=== PATIENT | male | born 1935 | race Caucasian/White ===

== ENCOUNTER → 2016-10-23 | Outpatient (CLI) | payer MEDICARE, BC ==
[~2016-10-23] MED LIST: CHILDREN'S ASPI81 M1 PO; COUMADIN PO; COUMADIN1 MG PO; DIGOXIN0.125 MG PO; FERROUS SU325 MG/TAB PO; INDOCIN50 MG PO; LASIX 40MG TABL40 MG PO; LEVOTHYROXIN0.075 MG PO; LISINOPRIL10 MG PO; LOPRESSOR100 MG PO; LOPRESSOR50 MG PO; MIRALAX PA17 GM/Dose PO; NITROSTAT0.4 MG/TAB SL; NORCO 325 MG-51 TAB PO; ULTRAM 50MG TAB50 MG PO; ZESTRIL2.5 MG PO
== END ==
LOC: LAB 10:23
DX: Z51.81 Encounter for therapeutic drug level monitoring (principal); Z79.01 Long term (current) use of anticoagulants; I48.2 Chronic atrial fibrillation

== ENCOUNTER → 2016-11-11 | Outpatient (CLI) | payer MEDICARE, BC | LOC: LAB 11:01 | DX: Z51.81 Encounter for therapeutic drug level monitoring (principal); Z79.01 Long term (current) use of anticoagulants; I48.91 Unspecified atrial fibrillation ==

== ENCOUNTER → 2016-11-18 | Outpatient (CLI) | payer MEDICARE, BC | LOC: LAB 11:03 | DX: I48.2 Chronic atrial fibrillation (principal); Z79.01 Long term (current) use of anticoagulants ==

== ENCOUNTER → 2016-11-25 | Outpatient (CLI) | payer MEDICARE, BC | LOC: LAB 11:06 | DX: Z79.01 Long term (current) use of anticoagulants (principal); I48.2 Chronic atrial fibrillation ==

== ENCOUNTER → 2016-12-02 | Outpatient (CLI) | payer MEDICARE, BC | LOC: LAB 10:33 | DX: Z79.01 Long term (current) use of anticoagulants (principal) ==

== ENCOUNTER → 2016-12-09 | Outpatient (CLI) | payer MEDICARE, BC | LOC: LAB 10:38 | DX: Z79.01 Long term (current) use of anticoagulants (principal) ==

== ENCOUNTER → 2016-12-16 | Outpatient (CLI) | payer MEDICARE, BC | LOC: LAB 10:33 | DX: Z51.81 Encounter for therapeutic drug level monitoring (principal); Z79.01 Long term (current) use of anticoagulants ==

== ENCOUNTER → 2016-12-30 | Outpatient (CLI) | payer MEDICARE, BC | LOC: LAB 10:35 | DX: Z51.81 Encounter for therapeutic drug level monitoring (principal); Z79.01 Long term (current) use of anticoagulants ==

== ENCOUNTER → 2017-01-22 | Outpatient (CLI) | payer MEDICARE, BC | LOC: LAB 10:02 | DX: Z51.81 Encounter for therapeutic drug level monitoring (principal); Z79.01 Long term (current) use of anticoagulants ==

== ENCOUNTER → 2017-02-19 | Outpatient (CLI) | payer MEDICARE, BC ==
[2015-04-24 06:48] VITALS: BP 132/82
== END ==
LOC: LAB 10:55
DX: Z51.81 Encounter for therapeutic drug level monitoring (principal); Z79.01 Long term (current) use of anticoagulants

== ENCOUNTER → 2017-03-19 | Outpatient (CLI) | payer MEDICARE, BC ==
[2015-04-24 06:48] VITALS: BP 132/82
== END ==
LOC: LAB 10:29
DX: Z51.81 Encounter for therapeutic drug level monitoring (principal); Z79.01 Long term (current) use of anticoagulants

== ENCOUNTER → 2017-04-16 | Outpatient (CLI) | payer MEDICARE, BC ==
[2015-04-24 06:48] VITALS: BP 132/82
== END ==
LOC: LAB 10:36
DX: Z51.81 Encounter for therapeutic drug level monitoring (principal); Z79.01 Long term (current) use of anticoagulants

== ENCOUNTER → 2017-05-15 | Outpatient (CLI) | payer MEDICARE, BC ==
[2015-04-24 06:48] VITALS: BP 132/82
== END ==
LOC: LAB 11:44
DX: Z79.01 Long term (current) use of anticoagulants (principal)

== ENCOUNTER → 2017-06-12 | Outpatient (CLI) | payer MEDICARE, BC ==
[2015-04-24 06:48] VITALS: BP 132/82
== END ==
LOC: LAB 14:00
DX: Z79.01 Long term (current) use of anticoagulants (principal)

== ENCOUNTER → 2017-06-19 | Outpatient (CLI) | payer MEDICARE, BC ==
[2015-04-24 06:48] VITALS: BP 132/82
== END ==
LOC: LAB 10:49
DX: Z79.01 Long term (current) use of anticoagulants (principal)

== ENCOUNTER → 2017-06-26 | Outpatient (CLI) | payer MEDICARE, BC ==
[2015-04-24 06:48] VITALS: BP 132/82
== END ==
LOC: LAB 13:30
DX: Z79.01 Long term (current) use of anticoagulants (principal)

== ENCOUNTER → 2017-07-03 | Outpatient (CLI) | payer MEDICARE, BC ==
[2015-04-24 06:48] VITALS: BP 132/82
== END ==
LOC: LAB 10:51
DX: Z79.01 Long term (current) use of anticoagulants (principal)

== ENCOUNTER → 2017-07-10 | Outpatient (CLI) | payer MEDICARE, BC ==
[2015-04-24 06:48] VITALS: BP 132/82
== END ==
LOC: LAB 11:17
DX: Z51.81 Encounter for therapeutic drug level monitoring (principal); Z79.01 Long term (current) use of anticoagulants

== ENCOUNTER → 2017-07-23 | Outpatient (CLI) | payer MEDICARE, BC ==
[2015-04-24 06:48] VITALS: BP 132/82
== END ==
LOC: LAB 10:45
DX: Z00.00 Encounter for general adult medical examination without abnormal findings (principal); Z12.5 Encounter for screening for malignant neoplasm of prostate; I25.10 Atherosclerotic heart disease of native coronary artery without angina pectoris; E11.8 Type 2 diabetes mellitus with unspecified complications; E78.2 Mixed hyperlipidemia; E03.4 Atrophy of thyroid (acquired); Z79.01 Long term (current) use of anticoagulants

== ENCOUNTER → 2017-08-13 | Outpatient (CLI) | payer MEDICARE, BC ==
[2015-04-24 06:48] VITALS: BP 132/82
[2017-08-13 11:12] LABS: PROTHROMBIN TIME 24.1 SECONDS (9.0-12.0)
== END ==
LOC: LAB 10:40
PROVIDERS: Internal Medicine Cardiovascular Disease
DX: Z79.01 Long term (current) use of anticoagulants (principal)

== ENCOUNTER 2017-09-09 04:37 | Emergency (ER) | payer MEDICARE, BC ==
[~2017-09-09] VITALS: Ht 185.4 cm; Wt 104.5 kg
[2017-09-09] MEDS ORDERED: TOPROL XL 50MG50 MG PO (05:12)
[2017-09-09] MEDS ORDERED: SYNTHROID0.075 MG PO (05:12)
[2017-09-09] MEDS ORDERED: LASIX80 M1 PO (05:13)
[2017-09-09] MEDS ORDERED: DIGOX0.125 MG PO (05:13)
[2017-09-09] MEDS ORDERED: ZESTRIL2.5 M1 PO (05:13)
[2017-09-09] MEDS ORDERED: CHILDREN'S ASPI81 M1 PO (05:14)
[2017-09-09] MEDS ORDERED: COUMADIN 1MG1 MG/TAB PO ×2 (05:14→05:15)
[2017-09-09] MEDS ORDERED: NITROSTAT0.3 MG SL (05:15)
[2017-09-09 05:55] LABS: HEMATOCRIT 40.4 % (42.0-52.0); HEMOGLOBIN 13.4 g/dL (13.5-18.0); MEAN CELL VOLUME 93 fl (78-100); MEAN CORPUSCULAR HEMOGLOBIN 31 pg (27-31); MEAN CORPUSCULAR HGB CONC 33 g/dL (33-37); MEAN PLATELET VOLUME 10.2 fl (7.4-10.4); PLATELET COUNT 120 K/mm3 (130-400); RED BLOOD COUNT 4.34 M/mm3 (4.20-5.60); RED CELL DISTRIBUTION WIDTH 14.2 % (11.5-14.5); WHITE BLOOD COUNT 9.2 K/mm3 (4.8-10.8)
[2017-09-09 06:00] LABS: ALBUMIN 3.9 g/dL (3.5-5.0); BUN/CREATININE RATIO 19.9 (6.0-26.0); CALCIUM 9.3 mg/dL (8.4-10.2); POTASSIUM 3.7 mmol/L (3.6-5.0); TOTAL PROTEIN 6.9 g/dL (6.3-8.2)
[2017-09-09 06:06] LABS: PROTHROMBIN TIME 22.9 SECONDS (9.0-12.0)
[2017-09-09 06:07] LABS: CKMB ISOENZYME 1.1 ng/mL (0.6-3.5)
[2017-09-09 06:14] LABS: PH-URINE 5.5 (5.0 - 8.0); URINE APPEARANCE CLEAR; URINE BILIRUBIN NEGATIVE (NEGATIVE); URINE BLOOD TRACE (NEGATIVE); URINE COLOR AMBER; URINE GLUCOSE NEGATIVE (NEGATIVE); URINE KETONE 1+ (NEGATIVE); URINE LEUKOCYTE ESTERASE NEGATIVE (NEGATIVE); URINE MUCUS PRESENT (NOT PRESENT); URINE NITRATE NEGATIVE (NEGATIVE); URINE PROTEIN(semi-quant) TRACE mg/dL (NEGATIVE); URINE UROBILINOGEN NORMAL (NORMAL)
[2017-09-09 06:15] LABS: BAND 4 % (0-10); LYMPHOCYTE 2 % (20-51); MONOCYTE 12 % (3-10); NEUTROPHILS 82 % (42-75)
[2017-09-09 06:16] LABS: TROPONIN-I < 0.03 ng/mL (0.00-0.06)
[2017-09-09] MEDS ORDERED: LOPRESSOR 550 MG/TAB PO (08:22)
[2017-09-09] MEDS ORDERED: ZOFRAN ODT8 M1 PO (10:16)
[2017-09-09] MEDS ORDERED: CLEOCIN HCL300 MG PO (10:16)
[2017-09-09] MEDS ORDERED: DOCUSATE SOD100 MG PO (10:16)
[2017-09-09] MEDS ORDERED: NORCO 325 MG-51 TA1 PO (10:16)
[2017-09-09 10:38] VITALS: BP 132/74
== END 2017-09-09 10:39 | disposition home or self-care (01) ==
LOC: ED 04:37
PROVIDERS: Nurse Practitioner Primary Care
DX: K81.0 Acute cholecystitis (principal); R07.9 Chest pain, unspecified; I48.91 Unspecified atrial fibrillation; Z79.01 Long term (current) use of anticoagulants; I25.10 Atherosclerotic heart disease of native coronary artery without angina pectoris; I25.2 Old myocardial infarction; E78.5 Hyperlipidemia, unspecified; I10 Essential (primary) hypertension; Z95.5 Presence of coronary angioplasty implant and graft
CPT/HCPCS: J2270; J2405; J7030; Q9967

== ENCOUNTER 2017-10-06 13:09 | Inpatient (IN) | payer MEDICARE, BC ==
[~2017-10-06] VITALS: Ht 185.4 cm; Wt 96.4 kg
[~2017-10-06 13:09] MED LIST changes: +CLEOCIN HCL300 MG PO; +COUMADIN 1MG1 MG/TAB PO; +DIGOX0.125 MG PO; +DOCUSATE SOD100 MG PO; +LASIX80 M1 PO; +LOPRESSOR 550 MG/TAB PO; +NITROSTAT0.3 MG SL; +NORCO 325 MG-51 TA1 PO; +SYNTHROID0.075 MG PO; +TOPROL XL 50MG50 MG PO; +ZESTRIL2.5 M1 PO; +ZOFRAN ODT8 M1 PO
[2017-10-07] MEDS ORDERED: TIAZAC120 MG PO (16:49)
[2017-10-07] MEDS ORDERED: FUROSEMIDE40 MG (16:50)
[2017-10-07] MEDS ORDERED: LOPRESSOR 550 MG/TAB PO (16:51)
[2017-10-07] MEDS ORDERED: DOCUSATE SODIUM1 TA2 PO (16:52)
[2017-10-07] MEDS ORDERED: COUMADIN 1MG1 MG/TAB PO (16:54)
[2017-10-07] MEDS ORDERED: NITROSTAT0.3 MG SL (16:54)
[2017-10-07 16:56] VITALS: BP 102/66
[2017-10-07] MEDS ORDERED: NORCO 325 MG-7.1 TA1 PO (16:56)
[2017-10-07 18:20] VITALS: BP 106/60
[2017-10-07 18:36] VITALS: BP 106/60
[2017-10-07 20:51] LABS: ALBUMIN 2.9 g/dL (3.5-5.0); BUN/CREATININE RATIO 28.3 (6.0-26.0); CALCIUM 8.8 mg/dL (8.4-10.2); POTASSIUM 3.9 mmol/L (3.6-5.0); TOTAL BILIRUBIN 0.9 mg/dL (0.2-1.3); TOTAL PROTEIN 5.9 g/dL (6.3-8.2)
[2017-10-08 05:59] LABS: HEMATOCRIT 32.8 % (42.0-52.0); HEMOGLOBIN 10.6 g/dL (13.5-18.0); MEAN CELL VOLUME 92 fl (78-100); MEAN CORPUSCULAR HEMOGLOBIN 30 pg (27-31); MEAN CORPUSCULAR HGB CONC 32 g/dL (33-37); MEAN PLATELET VOLUME 9.8 fl (7.4-10.4); PLATELET COUNT 226 K/mm3 (130-400); RED BLOOD COUNT 3.56 M/mm3 (4.20-5.60); RED CELL DISTRIBUTION WIDTH 14.2 % (11.5-14.5); WHITE BLOOD COUNT 6.9 K/mm3 (4.8-10.8)
[2017-10-08 06:22] VITALS: BP 134/74
[2017-10-08 06:30] LABS: LYMPHOCYTE 19 % (20-51); MONOCYTE 17 % (3-10); NEUTROPHILS 63 % (42-75)
[2017-10-08 19:19] VITALS: BP 104/55
[2017-10-09 07:09] VITALS: BP 122/77
[2017-10-09 18:50] VITALS: BP 132/74
[2017-10-10 06:11] VITALS: BP 143/77
[2017-10-10 18:56] VITALS: BP 121/68
[2017-10-11 07:08] VITALS: BP 130/68
[2017-10-11 16:41] LABS: EOS # 0.4 (0.04-0.40); HEMATOCRIT 32.8 % (42.0-52.0); HEMOGLOBIN 10.4 g/dL (13.5-18.0); LYMPH# 0.9 (1.50-4.00); MEAN CELL VOLUME 93 fl (78-100); MEAN CORPUSCULAR HEMOGLOBIN 29 pg (27-31); MEAN CORPUSCULAR HGB CONC 32 g/dL (33-37); MEAN PLATELET VOLUME 9.3 fl (7.4-10.4); MONO # 0.6 (0.20-0.80); NEU # 4.2 (1.40-6.50); PLATELET COUNT 271 K/mm3 (130-400); RED BLOOD COUNT 3.54 M/mm3 (4.20-5.60); RED CELL DISTRIBUTION WIDTH 14.5 % (11.5-14.5); WHITE BLOOD COUNT 6.3 K/mm3 (4.8-10.8)
[2017-10-11 16:42] LABS: EOS % 6.2 % (0.0-4.0)
[2017-10-11 16:50] LABS: PROTHROMBIN TIME 20.8 SECONDS (9.0-12.0)
[2017-10-11 16:51] LABS: BUN/CREATININE RATIO 24.9 (6.0-26.0); CALCIUM 8.9 mg/dL (8.4-10.2); POTASSIUM 3.9 mmol/L (3.6-5.0)
[2017-10-11 18:27] VITALS: BP 116/71
[2017-10-12 06:44] VITALS: BP 99/65
[2017-10-12 18:09] VITALS: BP 130/49
[2017-10-13 06:30] VITALS: BP 117/66
[2017-10-13 08:40] LABS: PROTHROMBIN TIME 17.8 SECONDS (9.0-12.0)
[2017-10-13 18:26] VITALS: BP 109/58
[2017-10-14 06:37] VITALS: BP 117/65
[2017-10-14 07:00] LABS: EOS # 0.4 (0.04-0.40); HEMATOCRIT 32.8 % (42.0-52.0); HEMOGLOBIN 10.3 g/dL (13.5-18.0); LYMPH# 1.2 (1.50-4.00); MEAN CELL VOLUME 93 fl (78-100); MEAN CORPUSCULAR HEMOGLOBIN 29 pg (27-31); MEAN CORPUSCULAR HGB CONC 31 g/dL (33-37); MEAN PLATELET VOLUME 9.1 fl (7.4-10.4); MONO # 0.6 (0.20-0.80); NEU # 2.8 (1.40-6.50); PLATELET COUNT 248 K/mm3 (130-400); RED BLOOD COUNT 3.52 M/mm3 (4.20-5.60); RED CELL DISTRIBUTION WIDTH 14.6 % (11.5-14.5)
[2017-10-14 07:15] LABS: PROTHROMBIN TIME 18.1 SECONDS (9.0-12.0)
[2017-10-14 18:52] VITALS: BP 110/51
[2017-10-15 06:25] VITALS: BP 111/64
[2017-10-15 18:23] VITALS: BP 119/54
[2017-10-16 06:36] LABS: PROTHROMBIN TIME 22.3 SECONDS (9.0-12.0)
[2017-10-16 06:41] VITALS: BP 133/60
[2017-10-16] MEDS ORDERED: CARDIZEM CD240 M1 PO (08:17)
[2017-10-16] MEDS ORDERED: NORCO 325 MG-7.1 TAB PO (08:17)
[2017-10-16 18:00] VITALS: BP 110/54
[2017-10-17 06:34] VITALS: BP 121/59
== END 2017-10-17 11:20 | disposition home health service (06) | DRG 948 ==
LOC: MED/SURG 13:09
PROVIDERS: Family Medicine; Physician Assistant; ADMIT Nurse Practitioner Family
DX: R53.81 Other malaise (principal); I25.2 Old myocardial infarction; E03.9 Hypothyroidism, unspecified; I48.2 Chronic atrial fibrillation; Z86.718 Personal history of other venous thrombosis and embolism; Z95.5 Presence of coronary angioplasty implant and graft; Z96.652 Presence of left artificial knee joint; Z79.01 Long term (current) use of anticoagulants; Z87.891 Personal history of nicotine dependence; M65.4 Radial styloid tenosynovitis [de Quervain]; I11.0 Hypertensive heart disease with heart failure; I50.9 Heart failure, unspecified
CPT/HCPCS: J1650

== ENCOUNTER → 2017-10-27 | Outpatient (CLI) | payer MEDICARE, BC ==
[2017-10-17 06:34] VITALS: BP 121/59
[~2017-10-27] MED LIST changes: +CARDIZEM CD240 M1 PO; +DOCUSATE SODIUM1 TA2 PO; +FUROSEMIDE40 MG; +NORCO 325 MG-7.1 TA1 PO; +NORCO 325 MG-7.1 TAB PO; +TIAZAC120 MG PO
[2017-10-27 12:10] LABS: HEMATOCRIT 35.1 % (42.0-52.0); HEMOGLOBIN 10.9 g/dL (13.5-18.0); MEAN CELL VOLUME 95 fl (78-100); MEAN CORPUSCULAR HEMOGLOBIN 30 pg (27-31); MEAN CORPUSCULAR HGB CONC 31 g/dL (33-37); MEAN PLATELET VOLUME 9.4 fl (7.4-10.4); PLATELET COUNT 143 K/mm3 (130-400); WHITE BLOOD COUNT 3.9 K/mm3 (4.8-10.8)
[2017-10-27 12:17] LABS: PROTHROMBIN TIME 32.9 SECONDS (9.0-12.0)
[2017-10-27 12:25] LABS: LYMPHOCYTE 15 % (20-51); MONOCYTE 14 % (3-10); NEUTROPHILS 58 % (42-75); OVALOCYTES 1+
[2017-10-27 13:28] LABS: ERYTHROCYTE SEDIMENTATION RATE 100 mm/hr (0-20)
== END ==
LOC: RAD 11:46
PROVIDERS: Nurse Practitioner Family
DX: I48.2 Chronic atrial fibrillation (principal); R04.0 Epistaxis; M81.0 Age-related osteoporosis without current pathological fracture; M19.032 Primary osteoarthritis, left wrist; Z87.39 Personal history of other diseases of the musculoskeletal system and connective tissue

== ENCOUNTER → 2017-12-24 | Outpatient (CLI) | payer MEDICARE, BC ==
[2017-12-24 15:09] LABS: PROTHROMBIN TIME 19.6 SECONDS (9.0-12.0)
== END ==
LOC: LAB 13:48
PROVIDERS: Internal Medicine Cardiovascular Disease
DX: Z79.01 Long term (current) use of anticoagulants (principal)

== ENCOUNTER → 2018-01-01 | Outpatient (CLI) | payer MEDICARE, BC ==
[2018-01-01 11:45] LABS: PROTHROMBIN TIME 24.7 SECONDS (9.0-12.0)
== END ==
LOC: LAB 10:56
PROVIDERS: Internal Medicine Cardiovascular Disease
DX: Z79.01 Long term (current) use of anticoagulants (principal)

== ENCOUNTER → 2018-01-08 | Outpatient (CLI) | payer MEDICARE, BC ==
[2018-01-08 15:58] LABS: PROTHROMBIN TIME 29.3 SECONDS (9.0-12.0)
== END ==
LOC: LAB 15:00
PROVIDERS: Internal Medicine Cardiovascular Disease
DX: Z79.01 Long term (current) use of anticoagulants (principal)

== ENCOUNTER → 2018-01-22 | Outpatient (CLI) | payer MEDICARE, BC ==
[2018-01-22 13:49] LABS: PROTHROMBIN TIME 35.4 SECONDS (9.0-12.0)
== END ==
LOC: LAB 13:08
PROVIDERS: Internal Medicine Cardiovascular Disease
DX: Z79.01 Long term (current) use of anticoagulants (principal)

== ENCOUNTER → 2018-01-28 | Outpatient (CLI) | payer MEDICARE, BC | LOC: LAB 13:29 | PROVIDERS: Internal Medicine Cardiovascular Disease | DX: Z79.01 Long term (current) use of anticoagulants (principal) ==

== ENCOUNTER → 2018-02-05 | Outpatient (CLI) | payer MEDICARE, BC ==
[2018-02-05 16:06] LABS: PROTHROMBIN TIME 25.7 SECONDS (9.0-12.0)
== END ==
LOC: LAB 13:53
PROVIDERS: Internal Medicine Cardiovascular Disease
DX: Z79.01 Long term (current) use of anticoagulants (principal)

== ENCOUNTER → 2018-02-19 | Outpatient (CLI) | payer MEDICARE, BC ==
[2018-02-19 11:37] LABS: PROTHROMBIN TIME 26.2 SECONDS (9.0-12.0)
== END ==
LOC: LAB 10:49
PROVIDERS: Internal Medicine Cardiovascular Disease
DX: Z79.01 Long term (current) use of anticoagulants (principal)

== ENCOUNTER → 2018-03-13 | Outpatient (CLI) | payer MEDICARE, BC ==
[2018-03-13 10:47] LABS: PROTHROMBIN TIME 32.3 SECONDS (9.0-12.0)
== END ==
LOC: LAB 10:21
PROVIDERS: Internal Medicine Cardiovascular Disease
DX: Z79.01 Long term (current) use of anticoagulants (principal)

== ENCOUNTER → 2018-03-19 | Outpatient (CLI) | payer MEDICARE, BC ==
[2018-03-19 11:48] LABS: PROTHROMBIN TIME 32.8 SECONDS (9.0-12.0)
== END ==
LOC: LAB 11:19
PROVIDERS: Internal Medicine Cardiovascular Disease
DX: Z79.01 Long term (current) use of anticoagulants (principal)

== ENCOUNTER → 2018-03-27 | Outpatient (CLI) | payer MEDICARE, BC ==
[2018-03-27 11:02] LABS: PROTHROMBIN TIME 30.2 SECONDS (9.0-12.0)
== END ==
LOC: LAB 10:07
PROVIDERS: Internal Medicine Cardiovascular Disease
DX: Z51.81 Encounter for therapeutic drug level monitoring (principal); Z79.01 Long term (current) use of anticoagulants

== ENCOUNTER → 2018-04-02 | Outpatient (CLI) | payer MEDICARE, BC ==
[2018-04-02 14:50] LABS: PROTHROMBIN TIME 26.9 SECONDS (9.0-12.0)
== END ==
LOC: LAB 14:21
PROVIDERS: Internal Medicine Cardiovascular Disease
DX: Z51.81 Encounter for therapeutic drug level monitoring (principal); Z79.01 Long term (current) use of anticoagulants

== ENCOUNTER → 2018-04-16 | Outpatient (CLI) | payer MEDICARE, BC ==
[2018-04-16 10:48] LABS: PROTHROMBIN TIME 23.2 SECONDS (9.0-12.0)
== END ==
LOC: LAB 10:09
PROVIDERS: Internal Medicine Cardiovascular Disease
DX: Z51.81 Encounter for therapeutic drug level monitoring (principal); Z79.01 Long term (current) use of anticoagulants

== ENCOUNTER → 2018-05-06 | Outpatient (CLI) | payer MEDICARE, BC ==
[2018-05-06 12:01] LABS: PROTHROMBIN TIME 23.3 SECONDS (9.0-12.0)
== END ==
LOC: LAB 10:50
PROVIDERS: Internal Medicine Cardiovascular Disease
DX: Z51.81 Encounter for therapeutic drug level monitoring (principal); Z79.01 Long term (current) use of anticoagulants

== ENCOUNTER → 2018-06-02 | Outpatient (CLI) | payer MEDICARE, BC ==
[2018-06-02 15:59] LABS: BUN/CREATININE RATIO 15.4 (6.0-26.0); CALCIUM 9.1 mg/dL (8.4-10.2); TOTAL BILIRUBIN 0.8 mg/dL (0.2-1.3)
[2018-06-02 16:13] LABS: HEMATOCRIT 43.7 % (42.0-52.0); HEMOGLOBIN 14.4 g/dL (13.5-18.0); MEAN CELL VOLUME 97 fl (78-100); MEAN CORPUSCULAR HEMOGLOBIN 32 pg (27-31); MEAN CORPUSCULAR HGB CONC 33 g/dL (33-37); MEAN PLATELET VOLUME 9.8 fl (7.4-10.4); PLATELET COUNT 114 K/mm3 (130-400); RED CELL DISTRIBUTION WIDTH 13.8 % (11.5-14.5); WHITE BLOOD COUNT 3.9 K/mm3 (4.8-10.8)
[2018-06-02 16:27] LABS: URINE APPEARANCE CLEAR; URINE COLOR YELLOW
[2018-06-02 16:28] LABS: PH-URINE 5.5 (5.0 - 8.0); URINE BILIRUBIN NEGATIVE (NEGATIVE); URINE BLOOD NEGATIVE (NEGATIVE); URINE GLUCOSE NEGATIVE (NEGATIVE); URINE KETONE NEGATIVE (NEGATIVE); URINE LEUKOCYTE ESTERASE NEGATIVE (NEGATIVE); URINE NITRATE NEGATIVE (NEGATIVE); URINE PROTEIN(semi-quant) NEGATIVE (NEGATIVE); URINE UROBILINOGEN NORMAL (NORMAL); URINE WBC 0-1 /hpf (0-3)
[2018-06-02 16:47] LABS: LYMPHOCYTE 23 % (20-51); MONOCYTE 13 % (3-10); NEUTROPHILS 62 % (42-75)
[2018-06-02 17:50] LABS: PROTHROMBIN TIME 38.3 SECONDS (9.0-12.0)
== END ==
LOC: LAB 13:49
PROVIDERS: Internal Medicine Cardiovascular Disease
DX: I10 Essential (primary) hypertension (principal); E11.9 Type 2 diabetes mellitus without complications; E78.5 Hyperlipidemia, unspecified; E03.9 Hypothyroidism, unspecified; M10.9 Gout, unspecified; Z79.01 Long term (current) use of anticoagulants

== ENCOUNTER → 2018-06-10 | Outpatient (CLI) | payer MEDICARE, BC ==
[2018-06-10 16:26] LABS: PROTHROMBIN TIME 34.5 SECONDS (9.0-12.0)
== END ==
LOC: LAB 15:33
PROVIDERS: Internal Medicine Cardiovascular Disease
DX: Z51.81 Encounter for therapeutic drug level monitoring (principal); Z79.01 Long term (current) use of anticoagulants

== ENCOUNTER → 2018-07-03 | Outpatient (CLI) | payer MEDICARE, BC ==
[2018-07-03 11:35] LABS: PROTHROMBIN TIME 17.1 SECONDS (9.0-12.0)
== END ==
LOC: LAB 10:44
PROVIDERS: Internal Medicine Cardiovascular Disease
DX: Z51.81 Encounter for therapeutic drug level monitoring (principal); Z79.01 Long term (current) use of anticoagulants

== ENCOUNTER → 2018-07-14 | Outpatient (CLI) | payer MEDICARE, BC | LOC: LAB 10:08 | PROVIDERS: Internal Medicine Cardiovascular Disease | DX: Z79.01 Long term (current) use of anticoagulants (principal) ==

== ENCOUNTER → 2018-08-04 | Outpatient (CLI) | payer MEDICARE, BC ==
[2018-08-04 11:23] LABS: PROTHROMBIN TIME 24.5 SECONDS (9.0-12.0)
== END ==
LOC: LAB 10:52
PROVIDERS: Internal Medicine Cardiovascular Disease
DX: Z79.01 Long term (current) use of anticoagulants (principal)

== ENCOUNTER → 2018-09-02 | Outpatient (CLI) | payer MEDICARE, BC ==
[2018-09-02 11:50] LABS: PROTHROMBIN TIME 26.3 SECONDS (9.0-12.0)
== END ==
LOC: LAB 10:44
PROVIDERS: Internal Medicine Cardiovascular Disease
DX: Z51.81 Encounter for therapeutic drug level monitoring (principal); Z79.01 Long term (current) use of anticoagulants

== ENCOUNTER → 2018-09-29 | Outpatient (CLI) | payer MEDICARE, BC ==
[2018-09-29 14:57] LABS: PROTHROMBIN TIME 24.6 SECONDS (9.0-12.0)
== END ==
LOC: LAB 13:55
PROVIDERS: Internal Medicine Cardiovascular Disease
DX: Z51.81 Encounter for therapeutic drug level monitoring (principal); Z79.01 Long term (current) use of anticoagulants

== ENCOUNTER → 2018-10-28 | Outpatient (CLI) | payer MEDICARE, BC ==
[2018-10-28 11:01] LABS: PROTHROMBIN TIME 19.6 SECONDS (9.0-12.0)
== END ==
LOC: LAB 10:28
PROVIDERS: Internal Medicine Cardiovascular Disease
DX: Z51.81 Encounter for therapeutic drug level monitoring (principal); Z79.01 Long term (current) use of anticoagulants

== ENCOUNTER → 2018-11-04 | Outpatient (CLI) | payer MEDICARE, BC ==
[2018-11-04 13:05] LABS: PROTHROMBIN TIME 23.9 SECONDS (9.0-12.0)
== END ==
LOC: LAB 11:08
PROVIDERS: Internal Medicine Cardiovascular Disease
DX: Z51.81 Encounter for therapeutic drug level monitoring (principal); Z79.01 Long term (current) use of anticoagulants; I48.2 Chronic atrial fibrillation

== ENCOUNTER → 2018-11-18 | Outpatient (CLI) | payer MEDICARE, BC ==
[2018-11-18 11:45] LABS: PROTHROMBIN TIME 25.5 SECONDS (9.0-12.0)
== END ==
LOC: RAD 10:46 → LAB 10:46
PROVIDERS: Internal Medicine Cardiovascular Disease
DX: I50.9 Heart failure, unspecified (principal); R05 Cough; I48.2 Chronic atrial fibrillation; Z79.01 Long term (current) use of anticoagulants; Z87.09 Personal history of other diseases of the respiratory system

== ENCOUNTER → 2018-12-17 | Outpatient (CLI) | payer MEDICARE, BC ==
[2018-12-18 11:43] LABS: PROTHROMBIN TIME 28.4 SECONDS (9.0-12.0)
== END ==
LOC: LAB 10:13
PROVIDERS: Internal Medicine Cardiovascular Disease
DX: I48.2 Chronic atrial fibrillation (principal); Z79.01 Long term (current) use of anticoagulants

== ENCOUNTER → 2019-01-11 | Outpatient (CLI) | payer MEDICARE, BC ==
[2019-01-11 13:20] LABS: PROTHROMBIN TIME 25.2 SECONDS (9.0-12.0)
== END ==
LOC: LAB 11:30
PROVIDERS: Internal Medicine Cardiovascular Disease
DX: I48.2 Chronic atrial fibrillation (principal); Z79.01 Long term (current) use of anticoagulants

== ENCOUNTER → 2019-02-08 | Outpatient (CLI) | payer MEDICARE, BC ==
[2019-02-08 11:18] LABS: PROTHROMBIN TIME 36.8 SECONDS (9.0-12.0)
== END ==
LOC: LAB 10:37
PROVIDERS: Internal Medicine Cardiovascular Disease
DX: I48.2 Chronic atrial fibrillation (principal); Z79.01 Long term (current) use of anticoagulants

== ENCOUNTER → 2019-03-17 | Outpatient (CLI) | payer MEDICARE, BC ==
[2019-03-17 13:57] LABS: PROTHROMBIN TIME 24.3 SECONDS (9.0-12.0)
== END ==
LOC: LAB 13:14
PROVIDERS: Internal Medicine Cardiovascular Disease
DX: I48.2 Chronic atrial fibrillation (principal); Z79.01 Long term (current) use of anticoagulants

== ENCOUNTER → 2019-05-12 | Outpatient (CLI) | payer MEDICARE, BC ==
[2019-05-12 14:22] LABS: PROTHROMBIN TIME 23.3 SECONDS (9.0-12.0)
== END ==
LOC: LAB 13:53
PROVIDERS: Internal Medicine Cardiovascular Disease
DX: I48.2 Chronic atrial fibrillation (principal); Z79.01 Long term (current) use of anticoagulants

== ENCOUNTER → 2019-06-09 | Outpatient (CLI) | payer MEDICARE, BC ==
[2019-06-09 11:08] LABS: PROTHROMBIN TIME 30.6 SECONDS (9.0-12.0)
== END ==
LOC: LAB 10:02
PROVIDERS: Internal Medicine Cardiovascular Disease
DX: I48.2 Chronic atrial fibrillation (principal); Z79.01 Long term (current) use of anticoagulants

== ENCOUNTER → 2019-07-07 | Outpatient (CLI) | payer MEDICARE, BC ==
[2019-07-07 10:47] LABS: PROTHROMBIN TIME 30.2 SECONDS (9.0-12.0)
== END ==
LOC: LAB 10:12
PROVIDERS: Internal Medicine Cardiovascular Disease
DX: I48.2 Chronic atrial fibrillation (principal); Z79.01 Long term (current) use of anticoagulants

== ENCOUNTER → 2019-08-05 | Outpatient (CLI) | payer MEDICARE, BC ==
[2019-08-05 10:41] LABS: PROTHROMBIN TIME 27.8 SECONDS (9.0-12.0)
== END ==
LOC: LAB 10:07
PROVIDERS: Internal Medicine Cardiovascular Disease
DX: I48.20 Chronic atrial fibrillation, unspecified (principal); Z79.01 Long term (current) use of anticoagulants

== ENCOUNTER → 2019-09-08 | Outpatient (CLI) | payer MEDICARE, BC | LOC: LAB 10:48 | PROVIDERS: Internal Medicine Cardiovascular Disease | DX: I48.20 Chronic atrial fibrillation, unspecified (principal); Z79.01 Long term (current) use of anticoagulants ==

== ENCOUNTER → 2019-10-06 | Outpatient (CLI) | payer MEDICARE, BC ==
[2019-10-06 12:18] LABS: PROTHROMBIN TIME 25.3 SECONDS (9.0-12.0)
== END ==
LOC: LAB 11:05
PROVIDERS: Internal Medicine Cardiovascular Disease
DX: Z51.81 Encounter for therapeutic drug level monitoring (principal); Z79.01 Long term (current) use of anticoagulants

== ENCOUNTER → 2019-11-03 | Outpatient (CLI) | payer MEDICARE, BC ==
[2019-11-03 14:37] LABS: PROTHROMBIN TIME 31.9 SECONDS (9.0-12.0)
== END ==
LOC: LAB 14:01
PROVIDERS: Internal Medicine Cardiovascular Disease
DX: I48.20 Chronic atrial fibrillation, unspecified (principal); Z79.01 Long term (current) use of anticoagulants

== ENCOUNTER → 2019-11-09 | Outpatient (CLI) | payer MEDICARE, BC ==
[2019-11-09 11:35] LABS: PROTHROMBIN TIME 27.8 SECONDS (9.0-12.0)
== END ==
LOC: LAB 10:48
PROVIDERS: Internal Medicine Cardiovascular Disease
DX: Z51.81 Encounter for therapeutic drug level monitoring (principal); Z79.01 Long term (current) use of anticoagulants

== ENCOUNTER → 2019-11-16 | Outpatient (CLI) | payer MEDICARE, BC ==
[2019-11-16 11:22] LABS: PROTHROMBIN TIME 24.9 SECONDS (9.0-12.0)
== END ==
LOC: LAB 10:49
PROVIDERS: Internal Medicine Cardiovascular Disease
DX: Z51.81 Encounter for therapeutic drug level monitoring (principal); Z79.01 Long term (current) use of anticoagulants

== ENCOUNTER → 2019-11-30 | Outpatient (CLI) | payer MEDICARE, BC ==
[2019-11-30 11:04] LABS: PROTHROMBIN TIME 21.4 SECONDS (9.0-12.0)
== END ==
LOC: LAB 10:37
PROVIDERS: Internal Medicine Cardiovascular Disease
DX: Z51.81 Encounter for therapeutic drug level monitoring (principal); Z79.01 Long term (current) use of anticoagulants

== ENCOUNTER → 2019-12-31 | Outpatient (CLI) | payer MEDICARE, BC ==
[2019-12-31 10:10] LABS: PROTHROMBIN TIME 24.6 SECONDS (9.0-12.0)
== END ==
LOC: LAB 09:38
PROVIDERS: Internal Medicine Cardiovascular Disease
DX: Z51.81 Encounter for therapeutic drug level monitoring (principal); Z79.01 Long term (current) use of anticoagulants

== ENCOUNTER → 2020-03-07 | Outpatient (CLI) | payer MEDICARE, BC ==
[2020-03-07 10:55] LABS: PROTHROMBIN TIME 21.7 SECONDS (9.0-12.0)
== END ==
LOC: LAB 09:27
PROVIDERS: Internal Medicine Cardiovascular Disease
DX: Z51.81 Encounter for therapeutic drug level monitoring (principal); Z79.01 Long term (current) use of anticoagulants

== ENCOUNTER → 2020-04-05 | Outpatient (CLI) | payer MEDICARE, BC ==
[2020-04-05 12:32] LABS: PROTHROMBIN TIME 35.3 SECONDS (9.0-12.0)
== END ==
LOC: LAB 11:09
PROVIDERS: Internal Medicine Cardiovascular Disease
DX: Z51.81 Encounter for therapeutic drug level monitoring (principal); Z79.01 Long term (current) use of anticoagulants

== ENCOUNTER → 2020-04-11 | Outpatient (CLI) | payer MEDICARE, BC | LOC: LAB 10:21 | PROVIDERS: Internal Medicine Cardiovascular Disease | DX: Z51.81 Encounter for therapeutic drug level monitoring (principal); Z79.01 Long term (current) use of anticoagulants ==

== ENCOUNTER → 2020-04-18 | Outpatient (CLI) | payer MEDICARE, BC ==
[2020-04-18 11:31] LABS: PROTHROMBIN TIME 21.9 SECONDS (9.0-12.0)
== END ==
LOC: LAB 10:29
PROVIDERS: Internal Medicine Cardiovascular Disease
DX: Z51.81 Encounter for therapeutic drug level monitoring (principal); Z79.01 Long term (current) use of anticoagulants

== ENCOUNTER → 2020-05-16 | Outpatient (CLI) | payer MEDICARE, BC ==
[2020-05-16 10:21] LABS: HEMATOCRIT 42.3 % (42.0-52.0); HEMOGLOBIN 14.1 g/dL (13.5-18.0); MEAN CELL VOLUME 96 fl (78-100); MEAN CORPUSCULAR HEMOGLOBIN 32 pg (27-31); MEAN CORPUSCULAR HGB CONC 33 g/dL (33-37); MEAN PLATELET VOLUME 10.2 fl (7.4-10.4); PLATELET COUNT 98 K/mm3 (130-400); RED CELL DISTRIBUTION WIDTH 14.1 % (11.5-14.5); WHITE BLOOD COUNT 4.8 K/mm3 (4.8-10.8)
[2020-05-16 10:24] LABS: POTASSIUM 4.2 mmol/L (3.5-5.1)
[2020-05-16 10:25] LABS: CALCIUM 9.2 mg/dL (8.3-10.5)
[2020-05-16 10:28] LABS: TOTAL BILIRUBIN 0.8 mg/dL (0.2-1.2)
[2020-05-16 10:46] LABS: PROTHROMBIN TIME 26.4 SECONDS (9.0-12.0)
[2020-05-16 10:59] LABS: LYMPHOCYTE 21 % (20-51); MONOCYTE 11 % (3-10); NEUTROPHILS 65 % (42-75)
== END ==
LOC: LAB 09:55
PROVIDERS: Internal Medicine Cardiovascular Disease
DX: E11.9 Type 2 diabetes mellitus without complications (principal); E78.5 Hyperlipidemia, unspecified; I10 Essential (primary) hypertension; Z79.01 Long term (current) use of anticoagulants

== ENCOUNTER → 2020-06-13 | Outpatient (CLI) | payer MEDICARE, BC ==
[2020-06-13 10:53] LABS: PROTHROMBIN TIME 23.6 SECONDS (9.0-12.0)
== END ==
LOC: LAB 10:22
PROVIDERS: Internal Medicine Cardiovascular Disease
DX: Z51.81 Encounter for therapeutic drug level monitoring (principal); Z79.01 Long term (current) use of anticoagulants

== ENCOUNTER → 2020-08-03 | Outpatient (CLI) | payer MEDICARE, BC ==
[2020-08-03 11:47] LABS: PROTHROMBIN TIME 40.8 SECONDS (9.0-12.0)
== END ==
LOC: LAB 10:17
PROVIDERS: Internal Medicine Cardiovascular Disease
DX: Z51.81 Encounter for therapeutic drug level monitoring (principal); Z79.01 Long term (current) use of anticoagulants

== ENCOUNTER → 2020-08-17 | Outpatient (CLI) | payer MEDICARE, BC ==
[2020-08-17 10:45] LABS: PROTHROMBIN TIME 37.5 SECONDS (9.0-12.0)
== END ==
LOC: LAB 10:18
PROVIDERS: Internal Medicine Cardiovascular Disease
DX: Z51.81 Encounter for therapeutic drug level monitoring (principal); Z79.01 Long term (current) use of anticoagulants

== ENCOUNTER → 2020-08-31 | Outpatient (CLI) | payer MEDICARE, BC | LOC: LAB 10:07 | PROVIDERS: Internal Medicine Cardiovascular Disease | DX: Z51.81 Encounter for therapeutic drug level monitoring (principal); Z79.01 Long term (current) use of anticoagulants ==

== ENCOUNTER → 2020-09-20 | Outpatient (CLI) | payer MEDICARE, BC ==
[2020-09-20 14:54] LABS: PROTHROMBIN TIME 36.6 SECONDS (9.0-12.0)
== END ==
LOC: LAB 14:19
PROVIDERS: Family Medicine
DX: I25.10 Atherosclerotic heart disease of native coronary artery without angina pectoris (principal); E11.9 Type 2 diabetes mellitus without complications; E03.4 Atrophy of thyroid (acquired)

== ENCOUNTER → 2020-10-16 | Outpatient (CLI) | payer MEDICARE, BC | LOC: LAB 11:05 | PROVIDERS: Internal Medicine Cardiovascular Disease | DX: Z79.01 Long term (current) use of anticoagulants (principal) ==

== ENCOUNTER → 2020-11-20 | Outpatient (CLI) | payer MEDICARE, BC ==
[2020-11-20 14:32] LABS: PROTHROMBIN TIME 36.4 SECONDS (9.0-12.0)
== END ==
LOC: LAB 13:52
PROVIDERS: Family Medicine
DX: I48.20 Chronic atrial fibrillation, unspecified (principal); Z79.01 Long term (current) use of anticoagulants

== ENCOUNTER → 2020-11-28 | Outpatient (CLI) | payer MEDICARE, BC ==
[2020-11-28 14:25] LABS: HEMATOCRIT 44.3 % (42.0-52.0); HEMOGLOBIN 14.5 g/dL (13.5-18.0); MEAN CELL VOLUME 96 fl (78-100); MEAN CORPUSCULAR HEMOGLOBIN 31 pg (27-31); MEAN CORPUSCULAR HGB CONC 33 g/dL (33-37); MEAN PLATELET VOLUME 10.2 fl (7.4-10.4); PLATELET COUNT 146 K/mm3 (130-400); RED BLOOD COUNT 4.62 M/mm3 (4.20-5.60); RED CELL DISTRIBUTION WIDTH 13.5 % (11.5-14.5); WHITE BLOOD COUNT 6.2 K/mm3 (4.8-10.8)
[2020-11-28 14:37] LABS: BAND 1 % (0-10); LYMPHOCYTE 22 % (20-51); MONOCYTE 14 % (3-10); NEUTROPHILS 61 % (42-75)
[2020-11-28 14:55] LABS: PROTHROMBIN TIME 45.3 SECONDS (9.0-12.0)
== END ==
LOC: LAB 14:02
PROVIDERS: Family Medicine
DX: M10.00 Idiopathic gout, unspecified site (principal); D64.9 Anemia, unspecified; I48.20 Chronic atrial fibrillation, unspecified; Z79.01 Long term (current) use of anticoagulants

== ENCOUNTER → 2020-12-05 | Outpatient (CLI) | payer MEDICARE, BC ==
[2020-12-05 15:56] LABS: PROTHROMBIN TIME 25.3 SECONDS (9.0-12.0)
== END ==
LOC: LAB 13:45
PROVIDERS: Internal Medicine Cardiovascular Disease
DX: I48.20 Chronic atrial fibrillation, unspecified (principal); I48.0 Paroxysmal atrial fibrillation; Z79.01 Long term (current) use of anticoagulants

== ENCOUNTER → 2020-12-13 | Outpatient (CLI) | payer MEDICARE, BC ==
[2020-12-14 06:39] LABS: PROTHROMBIN TIME 27.5 SECONDS (9.0-12.0)
== END ==
LOC: LAB 10:28
PROVIDERS: Internal Medicine Cardiovascular Disease
DX: I48.20 Chronic atrial fibrillation, unspecified (principal); I48.0 Paroxysmal atrial fibrillation; Z79.01 Long term (current) use of anticoagulants

== ENCOUNTER → 2021-01-31 | Outpatient (CLI) | payer MEDICARE, BC ==
[2021-01-31 14:49] LABS: PROTHROMBIN TIME 25.5 SECONDS (9.0-12.0)
== END ==
LOC: LAB 14:13
PROVIDERS: Internal Medicine Cardiovascular Disease
DX: I48.0 Paroxysmal atrial fibrillation (principal); I48.20 Chronic atrial fibrillation, unspecified; Z79.01 Long term (current) use of anticoagulants

== ENCOUNTER → 2021-02-27 | Outpatient (CLI) | payer MEDICARE, BC ==
[2021-02-27 10:25] LABS: PROTHROMBIN TIME 25.7 SECONDS (9.0-12.0)
== END ==
LOC: LAB 09:51
PROVIDERS: Family Medicine
DX: I48.0 Paroxysmal atrial fibrillation (principal); I48.20 Chronic atrial fibrillation, unspecified; Z79.01 Long term (current) use of anticoagulants

== ENCOUNTER → 2021-03-29 | Outpatient (CLI) | payer MEDICARE, BC ==
[2021-03-29 10:53] LABS: PROTHROMBIN TIME 27.2 SECONDS (9.0-12.0)
== END ==
LOC: LAB 10:19
PROVIDERS: Internal Medicine Cardiovascular Disease
DX: I48.20 Chronic atrial fibrillation, unspecified (principal); Z79.01 Long term (current) use of anticoagulants

== ENCOUNTER → 2021-04-17 | Outpatient (CLI) | payer MEDICARE, BC ==
[2021-04-17 11:34] LABS: PROTHROMBIN TIME 24.3 SECONDS (9.0-12.0)
== END ==
LOC: LAB 10:50
PROVIDERS: Internal Medicine Cardiovascular Disease
DX: I48.0 Paroxysmal atrial fibrillation (principal); Z79.01 Long term (current) use of anticoagulants

== ENCOUNTER → 2021-04-30 | Outpatient (CLI) | payer MEDICARE, BC ==
[2021-04-30 14:52] LABS: HEMATOCRIT 40.2 % (42.0-52.0); HEMOGLOBIN 13.4 g/dL (13.5-18.0); MEAN CELL VOLUME 98 fl (78-100); MEAN CORPUSCULAR HEMOGLOBIN 33 pg (27-31); MEAN CORPUSCULAR HGB CONC 33 g/dL (33-37); MEAN PLATELET VOLUME 10.2 fl (7.4-10.4); PLATELET COUNT 92 K/mm3 (130-400); RED BLOOD COUNT 4.12 M/mm3 (4.20-5.60); RED CELL DISTRIBUTION WIDTH 13.1 % (11.5-14.5)
[2021-04-30 15:03] LABS: POTASSIUM 4.4 mmol/L (3.5-5.1)
[2021-04-30 15:04] LABS: ALBUMIN 3.9 g/dL (3.4-4.8)
[2021-04-30 15:05] LABS: CALCIUM 9.4 mg/dL (8.3-10.5)
[2021-04-30 15:06] LABS: TOTAL PROTEIN 6.9 g/dL (6.2-8.1)
[2021-04-30 15:08] LABS: TOTAL BILIRUBIN 0.9 mg/dL (0.2-1.2)
[2021-04-30 16:51] LABS: LYMPHOCYTE 23 % (20-51); MONOCYTE 18 % (3-10); NEUTROPHILS 56 % (42-75)
== END ==
LOC: LAB 14:04
PROVIDERS: Family Medicine
DX: Z00.00 Encounter for general adult medical examination without abnormal findings (principal); M25.572 Pain in left ankle and joints of left foot; E11.9 Type 2 diabetes mellitus without complications; E03.4 Atrophy of thyroid (acquired); E78.5 Hyperlipidemia, unspecified

== ENCOUNTER → 2021-05-15 | Outpatient (CLI) | payer MEDICARE, BC ==
[2021-05-15 11:49] LABS: PROTHROMBIN TIME 26.2 SECONDS (9.0-12.0)
== END ==
LOC: LAB 11:04
PROVIDERS: Family Medicine
DX: I48.0 Paroxysmal atrial fibrillation (principal); Z79.01 Long term (current) use of anticoagulants

== ENCOUNTER → 2021-05-25 | Outpatient (CLI) | payer MEDICARE, BC | LOC: AMSURD 11:12 | DX: I48.0 Paroxysmal atrial fibrillation (principal) ==

== ENCOUNTER → 2021-06-11 | Outpatient (CLI) | payer MEDICARE, BC | LOC: LAB 10:39 | PROVIDERS: Family Medicine | DX: Z20.822 Contact with and (suspected) exposure to COVID-19 (principal) ==

== ENCOUNTER → 2021-06-15 | Outpatient (CLI) | payer MEDICARE, BC | LOC: LAB 10:52 | PROVIDERS: Family Medicine | DX: I48.0 Paroxysmal atrial fibrillation (principal); I48.20 Chronic atrial fibrillation, unspecified; Z79.01 Long term (current) use of anticoagulants ==

== ENCOUNTER → 2021-06-29 | Outpatient (CLI) | payer MEDICARE, BC ==
[2021-06-29 12:31] LABS: PROTHROMBIN TIME 26.6 SECONDS (9.0-12.0)
== END ==
LOC: LAB 11:50
PROVIDERS: Internal Medicine Cardiovascular Disease
DX: I48.20 Chronic atrial fibrillation, unspecified (principal); Z79.01 Long term (current) use of anticoagulants

== ENCOUNTER → 2021-07-06 | Outpatient (CLI) | payer MEDICARE, BC ==
[2021-07-06 19:10] LABS: PROTHROMBIN TIME 28.6 SECONDS (9.0-12.0)
== END ==
LOC: LAB 14:32
PROVIDERS: Family Medicine
DX: Z01.89 Encounter for other specified special examinations (principal); I48.0 Paroxysmal atrial fibrillation; Z79.01 Long term (current) use of anticoagulants

== ENCOUNTER → 2021-07-11 | Day surgery (SDC) | payer MEDICARE, BC | LOC: MSO 09:43 | DX: H25.812 Combined forms of age-related cataract, left eye (principal); I49.9 Cardiac arrhythmia, unspecified; I48.91 Unspecified atrial fibrillation; I50.9 Heart failure, unspecified; I11.0 Hypertensive heart disease with heart failure; M10.9 Gout, unspecified; I25.2 Old myocardial infarction; E03.9 Hypothyroidism, unspecified; Z90.89 Acquired absence of other organs; Z79.82 Long term (current) use of aspirin; Z79.899 Other long term (current) drug therapy; Z79.890 Hormone replacement therapy; Z87.891 Personal history of nicotine dependence | CPT/HCPCS: 00142; J0171; J2250; V2632 ==

== ENCOUNTER → 2021-08-03 | Outpatient (CLI) | payer MEDICARE, BC ==
[2021-08-03 11:39] LABS: PROTHROMBIN TIME 27.6 SECONDS (9.0-12.0)
== END ==
LOC: LAB 11:03
PROVIDERS: Internal Medicine Cardiovascular Disease
DX: I48.0 Paroxysmal atrial fibrillation (principal)

== ENCOUNTER → 2021-08-15 | Day surgery (SDC) | payer MEDICARE, BC | END | disposition home or self-care (01) | LOC: MSO 06-13 07:29 | DX: H25.811 Combined forms of age-related cataract, right eye (principal) | CPT/HCPCS: 00142; J0171; V2632 ==

== ENCOUNTER → 2021-08-29 | Outpatient (CLI) | payer MEDICARE, BC ==
[2021-08-29 11:42] LABS: PROTHROMBIN TIME 25.4 SECONDS (9.0-12.0)
== END ==
LOC: LAB 10:03
PROVIDERS: Family Medicine
DX: I48.20 Chronic atrial fibrillation, unspecified (principal); Z79.01 Long term (current) use of anticoagulants

== ENCOUNTER → 2021-09-14 | Outpatient (CLI) | payer MEDICARE, BC ==
[2021-09-14 11:23] LABS: PROTHROMBIN TIME 27.3 SECONDS (9.0-12.0)
== END ==
LOC: LAB 10:46
PROVIDERS: Internal Medicine Cardiovascular Disease
DX: I48.20 Chronic atrial fibrillation, unspecified (principal); Z79.01 Long term (current) use of anticoagulants

== ENCOUNTER → 2021-10-01 | Outpatient (CLI) | payer MEDICARE, BC ==
[2021-10-01 11:16] LABS: PROTHROMBIN TIME 21.9 SECONDS (9.0-12.0)
== END ==
LOC: LAB 10:46
PROVIDERS: Internal Medicine Cardiovascular Disease
DX: I48.20 Chronic atrial fibrillation, unspecified (principal); Z79.01 Long term (current) use of anticoagulants

== ENCOUNTER → 2021-11-05 | Outpatient (CLI) | payer MEDICARE, BC ==
[2021-11-05 10:59] LABS: PROTHROMBIN TIME 27.3 SECONDS (9.0-12.0)
== END ==
LOC: LAB 10:27
PROVIDERS: Family Medicine
DX: I48.0 Paroxysmal atrial fibrillation (principal); I48.20 Chronic atrial fibrillation, unspecified; Z79.01 Long term (current) use of anticoagulants

== ENCOUNTER 2021-11-28 11:15 | Emergency (ER) | payer MEDICARE, BC ==
[~2021-11-28] VITALS: Ht 185.4 cm; Wt 101.7 kg
[~2021-11-28 11:15] MED LIST changes: -FUROSEMIDE40 MG; +FUROSEMIDE40 MG PO
[2021-11-28] MEDS ORDERED: WARFARIN SODIUM1 MG PO (12:04)
[2021-11-28] MEDS ORDERED: NEURONTIN300 MG/CAP PO (12:07)
[2021-11-28] MEDS ORDERED: NATURAL IRON65 MG PO (12:08)
[2021-11-28] MEDS ORDERED: TOBRAMYCIN AND D5 ML OP (12:08)
[2021-11-28 12:11] LABS: HEMOGLOBIN 12.6 g/dL (13.5-18.0); MEAN CELL VOLUME 99 fl (78-100); MEAN CORPUSCULAR HEMOGLOBIN 34 pg (27-31); MEAN CORPUSCULAR HGB CONC 34 g/dL (33-37); MEAN PLATELET VOLUME 11.2 fl (7.4-10.4); PLATELET COUNT 97 K/mm3 (130-400); RED BLOOD COUNT 3.75 M/mm3 (4.20-5.60); RED CELL DISTRIBUTION WIDTH 14.1 % (11.5-14.5); WHITE BLOOD COUNT 8.2 K/mm3 (4.8-10.8)
[2021-11-28 12:13] LABS: SODIUM 139 mmol/L (136-145)
[2021-11-28 12:15] LABS: PROTHROMBIN TIME 25.8 SECONDS (9.0-12.0); TOTAL PROTEIN 6.7 g/dL (6.2-8.1)
[2021-11-28 12:16] LABS: ALBUMIN 3.7 g/dL (3.4-4.8)
[2021-11-28 12:17] LABS: CALCIUM 9.1 mg/dL (8.3-10.5); CARBON DIOXIDE 22 mmol/L (23-31); TOTAL BILIRUBIN 1.2 mg/dL (0.2-1.2)
[2021-11-28 12:18] LABS: GLUCOSE 250 mg/dL (75-110)
[2021-11-28 12:21] LABS: AST-SGOT 24 U/L (5-34)
[2021-11-28 12:22] LABS: ALT/SGPT 25 U/L (0-55)
[2021-11-28 12:39] LABS: TROPONIN-I < 0.030 ng/mL (<0.030)
[2021-11-28 12:57] LABS: LYMPHOCYTE 4 % (20-51); MONOCYTE 6 % (3-10); NEUTROPHILS 90 % (42-75)
[2021-11-28 14:09] LABS: URINE WBC 0 /hpf (0-3)
[2021-11-28 14:29] LABS: URINE APPEARANCE HAZY; URINE BILIRUBIN NEGATIVE (NEGATIVE); URINE BLOOD TRACE (NEGATIVE); URINE COLOR YELLOW; URINE KETONE NEGATIVE (NEGATIVE); URINE LEUKOCYTE ESTERASE NEGATIVE (NEGATIVE); URINE NITRATE NEGATIVE (NEGATIVE); URINE PROTEIN(semi-quant) 2+ (NEGATIVE); URINE UROBILINOGEN 12 mg/dL (NORMAL)
[2021-11-28 14:30] LABS: URINE MUCUS PRESENT (NOT PRESENT)
[2021-11-28 14:54] VITALS: BP 160/79
== END 2021-11-28 14:55 | disposition other institution (70) ==
LOC: ED 11:15
PROVIDERS: Physician Assistant
DX: R05.9 Cough, unspecified (principal)
CPT/HCPCS: J7030

== ENCOUNTER 2021-11-28 13:53 | Inpatient (IN) | payer MEDICARE, BC ==
[~2021-11-28] VITALS: Ht 185.4 cm; Wt 101.1 kg
[~2021-11-28 13:53] MED LIST changes: +NATURAL IRON65 MG PO; +NEURONTIN300 MG/CAP PO; +TOBRAMYCIN AND D5 ML OP; +WARFARIN SODIUM1 MG PO
[2021-11-28 18:24] VITALS: BP 144/79
[2021-11-28 22:38] VITALS: BP 138/54
[2021-11-29 02:17] VITALS: BP 145/65
[2021-11-29 06:00] VITALS: BP 137/67
[2021-11-29 07:28] LABS: BASO # 0.02 K/mm3 (0.02-0.10); EOS # 0.07 K/mm3 (0.04-0.40); EOS % 1.1 % (0.0-4.0); HEMATOCRIT 32.4 % (42.0-52.0); HEMOGLOBIN 11.4 g/dL (13.5-18.0); LYMPH# 0.99 K/mm3 (1.50-4.00); MEAN CELL VOLUME 103 fl (78-100); MEAN CORPUSCULAR HEMOGLOBIN 36 pg (27-31); MEAN CORPUSCULAR HGB CONC 35 g/dL (33-37); MEAN PLATELET VOLUME 11.6 fl (7.4-10.4); MONO # 0.79 K/mm3 (0.20-0.80); PLATELET COUNT 81 K/mm3 (130-400); RED BLOOD COUNT 3.14 M/mm3 (4.20-5.60); RED CELL DISTRIBUTION WIDTH 14.5 % (11.5-14.5); WHITE BLOOD COUNT 6.4 K/mm3 (4.8-10.8)
[2021-11-29 07:30] LABS: POTASSIUM 3.5 mmol/L (3.5-5.1)
[2021-11-29 07:31] LABS: CALCIUM 8.7 mg/dL (8.3-10.5)
[2021-11-29 07:48] LABS: PROTHROMBIN TIME 27.2 SECONDS (9.0-12.0)
[2021-11-29 10:00] VITALS: BP 130/71
[2021-11-29 14:00] VITALS: BP 118/65
[2021-11-29 18:00] VITALS: BP 165/81
[2021-11-29 22:40] VITALS: BP 152/70
[2021-11-30 01:59] VITALS: BP 154/71
[2021-11-30 05:54] VITALS: BP 171/83
[2021-11-30 06:57] LABS: BASO # 0.02 K/mm3 (0.02-0.10); EOS # 0.07 K/mm3 (0.04-0.40); EOS % 1.3 % (0.0-4.0); HEMATOCRIT 35.9 % (42.0-52.0); LYMPH# 0.85 K/mm3 (1.50-4.00); MEAN CELL VOLUME 100 fl (78-100); MEAN CORPUSCULAR HEMOGLOBIN 33 pg (27-31); MEAN CORPUSCULAR HGB CONC 33 g/dL (33-37); MONO # 0.71 K/mm3 (0.20-0.80); NEU # 3.57 K/mm3 (1.40-6.50); PLATELET COUNT 84 K/mm3 (130-400); RED CELL DISTRIBUTION WIDTH 14.3 % (11.5-14.5); WHITE BLOOD COUNT 5.2 K/mm3 (4.8-10.8)
[2021-11-30 07:02] LABS: POTASSIUM 3.6 mmol/L (3.5-5.1)
[2021-11-30 07:03] LABS: CALCIUM 8.9 mg/dL (8.3-10.5)
[2021-11-30 07:07] LABS: PROTHROMBIN TIME 26.4 SECONDS (9.0-12.0)
[2021-11-30 10:04] VITALS: BP 169/68
[2021-11-30 14:20] VITALS: BP 150/80
[2021-11-30 17:29] VITALS: BP 159/88
[2021-11-30 21:18] VITALS: BP 158/87
[2021-12-01 01:53] VITALS: BP 158/80
[2021-12-01 06:05] VITALS: BP 148/77
[2021-12-01 10:04] VITALS: BP 162/75
[2021-12-01] MEDS ORDERED: CEFDINIR300 MG PO (10:31)
[2021-12-01] MEDS ORDERED: MORGIDOX 1X100100 MG PO (10:31)
== END 2021-12-01 13:04 | disposition home health service (06) | DRG 194 ==
LOC: MED/SURG 13:53
PROVIDERS: Physician Assistant; ADMIT Family Medicine
DX: J18.9 Pneumonia, unspecified organism (principal); I48.20 Chronic atrial fibrillation, unspecified; I48.0 Paroxysmal atrial fibrillation; E11.9 Type 2 diabetes mellitus without complications; I11.0 Hypertensive heart disease with heart failure; I50.9 Heart failure, unspecified; I25.10 Atherosclerotic heart disease of native coronary artery without angina pectoris; M10.00 Idiopathic gout, unspecified site; E78.5 Hyperlipidemia, unspecified; R53.81 Other malaise; W18.30XA Fall on same level, unspecified, initial encounter; Z79.01 Long term (current) use of anticoagulants; Z79.82 Long term (current) use of aspirin; Z96.652 Presence of left artificial knee joint; Z88.2 Allergy status to sulfonamides
CPT/HCPCS: J0696; J1940; J7030; J7050

== ENCOUNTER 2022-01-05 19:56 | Emergency (ER) | payer MEDICARE, BC ==
[~2022-01-05] VITALS: Wt 91.7 kg
[~2022-01-05 19:56] MED LIST changes: +CEFDINIR300 MG PO; +K-TAB10 MEQ PO; +MORGIDOX 1X100100 MG PO; +TORSEMIDE20 M1 PO
[2022-01-05] MEDS ORDERED: NITROSTAT0.4 M1 SL (22:20)
[2022-01-05 22:29] LABS: BASO # 0.03 K/mm3 (0.02-0.10); EOS # 0.01 K/mm3 (0.04-0.40); EOS % 0.1 % (0.0-4.0); HEMATOCRIT 38.4 % (42.0-52.0); HEMOGLOBIN 12.5 g/dL (13.5-18.0); LYMPH# 0.71 K/mm3 (1.50-4.00); MEAN CELL VOLUME 99 fl (78-100); MEAN CORPUSCULAR HEMOGLOBIN 32 pg (27-31); MEAN CORPUSCULAR HGB CONC 33 g/dL (33-37); MEAN PLATELET VOLUME 10.1 fl (7.4-10.4); MONO # 0.89 K/mm3 (0.20-0.80); NEU # 6.33 K/mm3 (1.40-6.50); PLATELET COUNT 133 K/mm3 (130-400); RED BLOOD COUNT 3.88 M/mm3 (4.20-5.60); RED CELL DISTRIBUTION WIDTH 14.4 % (11.5-14.5)
[2022-01-05 22:34] LABS: POTASSIUM 4.3 mmol/L (3.5-5.1)
[2022-01-05 22:35] LABS: CALCIUM 9.9 mg/dL (8.3-10.5)
[2022-01-05 23:00] LABS: URINE APPEARANCE HAZY; URINE BILIRUBIN 1+ (NEGATIVE); URINE BLOOD NEGATIVE (NEGATIVE); URINE COLOR DK YELLOW; URINE GLUCOSE NEGATIVE (NEGATIVE); URINE KETONE NEGATIVE (NEGATIVE); URINE LEUKOCYTE ESTERASE TRACE (NEGATIVE); URINE NITRATE NEGATIVE (NEGATIVE); URINE PROTEIN(semi-quant) TRACE (NEGATIVE); URINE UROBILINOGEN 1 mg/dL (NORMAL)
[2022-01-06 00:54] LABS: PROTHROMBIN TIME 28.4 SECONDS (9.0-12.0)
[2022-01-06 07:00] VITALS: BP 105/63
[2022-01-06] MEDS ORDERED: CEFTRIAXONE1 G1 IV (09:22)
== END 2022-01-06 10:12 | disposition home or self-care (01) ==
LOC: ED 19:56
PROVIDERS: Family Medicine
DX: R82.71 Bacteriuria (principal); E86.0 Dehydration; R05.3 Chronic cough; R53.1 Weakness; J18.1 Lobar pneumonia, unspecified organism; I50.9 Heart failure, unspecified; R53.81 Other malaise; E11.9 Type 2 diabetes mellitus without complications; Z79.01 Long term (current) use of anticoagulants; W19.XXXA Unspecified fall, initial encounter
CPT/HCPCS: J0696; J7030

== ENCOUNTER → 2022-01-07 | Outpatient (CLI) | payer MEDICARE, BC ==
[~2022-01-07] MED LIST changes: +CEFTRIAXONE1 G1 IV; +LEVOFLOXACIN750 MG PO; +NITROSTAT0.4 M1 SL; +TYLENOL 325MG325 MG PO; +ZOLOFT 50MG50 MG PO
[2022-01-07 12:07] LABS: PROTHROMBIN TIME 26.8 SECONDS (9.0-12.0)
== END ==
LOC: LAB 11:12
PROVIDERS: Family Medicine
DX: I48.20 Chronic atrial fibrillation, unspecified (principal)

== ENCOUNTER 2022-01-16 14:28 | Emergency (ER) | payer MEDICARE, BC ==
[~2022-01-16 14:28] MED LIST changes: -LEVOFLOXACIN750 MG PO; -TYLENOL 325MG325 MG PO; -ZOLOFT 50MG50 MG PO
[2022-01-16 15:20] LABS: BASO # 0.03 K/mm3 (0.02-0.10); EOS # 0.11 K/mm3 (0.04-0.40); EOS % 1.7 % (0.0-4.0); HEMATOCRIT 35.8 % (42.0-52.0); HEMOGLOBIN 11.2 g/dL (13.5-18.0); MEAN CELL VOLUME 101 fl (78-100); MEAN CORPUSCULAR HEMOGLOBIN 32 pg (27-31); MEAN CORPUSCULAR HGB CONC 31 g/dL (33-37); MEAN PLATELET VOLUME 9.8 fl (7.4-10.4); MONO # 0.61 K/mm3 (0.20-0.80); NEU # 4.53 K/mm3 (1.40-6.50); PLATELET COUNT 154 K/mm3 (130-400); RED BLOOD COUNT 3.56 M/mm3 (4.20-5.60); RED CELL DISTRIBUTION WIDTH 15.2 % (11.5-14.5); WHITE BLOOD COUNT 6.3 K/mm3 (4.8-10.8)
[2022-01-16 15:32] LABS: ALBUMIN 3.3 g/dL (3.4-4.8); POTASSIUM 4.6 mmol/L (3.5-5.1)
[2022-01-16 15:34] LABS: CALCIUM 9.9 mg/dL (8.3-10.5)
[2022-01-16 15:37] LABS: TOTAL BILIRUBIN 0.7 mg/dL (0.2-1.2)
[2022-01-16 15:40] LABS: PROTHROMBIN TIME 33.4 SECONDS (9.0-12.0)
[2022-01-16 17:04] VITALS: BP 144/82
== END 2022-01-16 16:40 | disposition home or self-care (01) ==
LOC: ED 14:28
PROVIDERS: Family Medicine
DX: I13.0 Hypertensive heart and chronic kidney disease with heart failure and stage 1 through stage 4 chronic kidney disease, or unspecified chronic kidney disease (principal); I50.9 Heart failure, unspecified; N18.9 Chronic kidney disease, unspecified; I95.9 Hypotension, unspecified; I48.20 Chronic atrial fibrillation, unspecified; Z79.01 Long term (current) use of anticoagulants
CPT/HCPCS: 15899

== ENCOUNTER 2022-01-18 15:59 | Emergency (ER) | payer MEDICARE, BC ==
[~2022-01-18] VITALS: Ht 185.4 cm; Wt 91.7 kg
[2022-01-18 16:41] LABS: BASO # 0.03 K/mm3 (0.02-0.10); EOS # 0.04 K/mm3 (0.04-0.40); EOS % 0.4 % (0.0-4.0); HEMATOCRIT 38.9 % (42.0-52.0); HEMOGLOBIN 12.2 g/dL (13.5-18.0); LYMPH# 1.14 K/mm3 (1.50-4.00); MEAN CELL VOLUME 101 fl (78-100); MEAN CORPUSCULAR HEMOGLOBIN 32 pg (27-31); MEAN CORPUSCULAR HGB CONC 31 g/dL (33-37); MEAN PLATELET VOLUME 9.6 fl (7.4-10.4); MONO # 0.42 K/mm3 (0.20-0.80); NEU # 8.98 K/mm3 (1.40-6.50); PLATELET COUNT 186 K/mm3 (130-400); RED BLOOD COUNT 3.85 M/mm3 (4.20-5.60); RED CELL DISTRIBUTION WIDTH 15.5 % (11.5-14.5); WHITE BLOOD COUNT 10.6 K/mm3 (4.8-10.8)
[2022-01-18 16:54] LABS: ALBUMIN 3.6 g/dL (3.4-4.8); POTASSIUM 4.6 mmol/L (3.5-5.1); SODIUM 145 mmol/L (136-145)
[2022-01-18 16:57] LABS: GLUCOSE 373 mg/dL (75-110); TOTAL PROTEIN 7.6 g/dL (6.2-8.1)
[2022-01-18 16:58] LABS: CARBON DIOXIDE 23 mmol/L (23-31)
[2022-01-18 16:59] LABS: TOTAL BILIRUBIN 0.9 mg/dL (0.2-1.2)
[2022-01-18 17:02] LABS: AST-SGOT 23 U/L (5-34)
[2022-01-18 17:03] LABS: ALT/SGPT 27 U/L (0-55)
[2022-01-18 17:10] LABS: TROPONIN-I < 0.030 ng/mL (<0.030)
[2022-01-18] MEDS ORDERED: TYLENOL 325MG325 MG PO (17:24)
[2022-01-18] MEDS ORDERED: ZOLOFT 50MG50 MG PO (17:29)
[2022-01-18 17:37] LABS: PROTHROMBIN TIME 48.1 SECONDS (9.0-12.0)
[2022-01-18 17:50] LABS: URINE APPEARANCE CLEAR; URINE BILIRUBIN NEGATIVE (NEGATIVE); URINE BLOOD NEGATIVE (NEGATIVE); URINE COLOR YELLOW; URINE KETONE NEGATIVE (NEGATIVE); URINE LEUKOCYTE ESTERASE NEGATIVE (NEGATIVE); URINE NITRATE NEGATIVE (NEGATIVE); URINE PROTEIN(semi-quant) 1+ (NEGATIVE); URINE UROBILINOGEN 1 mg/dL (NORMAL)
[2022-01-18 17:51] LABS: URINE MUCUS PRESENT (NOT PRESENT)
[2022-01-18 19:26] VITALS: BP 150/96
== END 2022-01-18 18:56 | disposition other institution (70) ==
LOC: ED 15:59
PROVIDERS: Family Medicine
DX: N18.9 Chronic kidney disease, unspecified (principal); I48.91 Unspecified atrial fibrillation; A41.9 Sepsis, unspecified organism; J18.9 Pneumonia, unspecified organism; I50.9 Heart failure, unspecified; Z79.01 Long term (current) use of anticoagulants
CPT/HCPCS: J2543; J7030

== ENCOUNTER 2022-01-18 18:56 | Inpatient (IN) | payer MEDICARE, BC ==
[~2022-01-18] VITALS: Ht 182.9 cm; Wt 90.8 kg
[2022-01-18 18:56] VITALS: BP 103/66
[~2022-01-18 18:56] MED LIST changes: +TYLENOL 325MG325 MG PO; +ZOLOFT 50MG50 MG PO
[2022-01-18 21:23] VITALS: BP 80/51
[2022-01-18 22:20] VITALS: BP 93/51
[2022-01-19] VITALS (7 sets, daily range): BP systolic 109–146; BP diastolic 65–82
[2022-01-19 11:08] LABS: BASO # 0.02 K/mm3 (0.02-0.10); EOS # 0.06 K/mm3 (0.04-0.40); EOS % 0.7 % (0.0-4.0); HEMATOCRIT 29.3 % (42.0-52.0); HEMOGLOBIN 9.3 g/dL (13.5-18.0); LYMPH# 1.16 K/mm3 (1.50-4.00); MEAN CELL VOLUME 102 fl (78-100); MEAN CORPUSCULAR HEMOGLOBIN 32 pg (27-31); MEAN CORPUSCULAR HGB CONC 32 g/dL (33-37); MONO # 0.48 K/mm3 (0.20-0.80); NEU # 6.47 K/mm3 (1.40-6.50); PLATELET COUNT 107 K/mm3 (130-400); RED BLOOD COUNT 2.87 M/mm3 (4.20-5.60); RED CELL DISTRIBUTION WIDTH 15.6 % (11.5-14.5); WHITE BLOOD COUNT 8.2 K/mm3 (4.8-10.8)
[2022-01-19 11:12] LABS: POTASSIUM 3.9 mmol/L (3.5-5.1)
[2022-01-19 11:13] LABS: CALCIUM 8.7 mg/dL (8.3-10.5)
[2022-01-19 11:56] LABS: PROTHROMBIN TIME 52.4 SECONDS (9.0-12.0)
[2022-01-20 02:06] VITALS: BP 148/71
[2022-01-20 06:07] VITALS: BP 141/64
[2022-01-20 09:30] VITALS: BP 111/65
[2022-01-20 13:51] VITALS: BP 143/75
[2022-01-20 17:35] VITALS: BP 125/69
[2022-01-20 22:39] VITALS: BP 138/95
[2022-01-21 02:06] VITALS: BP 151/75
[2022-01-21 06:11] VITALS: BP 147/78
[2022-01-21 07:07] LABS: BASO # 0.03 K/mm3 (0.02-0.10); EOS # 0.09 K/mm3 (0.04-0.40); EOS % 1.7 % (0.0-4.0); HEMATOCRIT 28.7 % (42.0-52.0); HEMOGLOBIN 9.2 g/dL (13.5-18.0); LYMPH# 0.96 K/mm3 (1.50-4.00); MEAN CELL VOLUME 98 fl (78-100); MEAN CORPUSCULAR HEMOGLOBIN 32 pg (27-31); MEAN CORPUSCULAR HGB CONC 32 g/dL (33-37); MEAN PLATELET VOLUME 9.7 fl (7.4-10.4); MONO # 0.41 K/mm3 (0.20-0.80); PLATELET COUNT 107 K/mm3 (130-400); RED BLOOD COUNT 2.92 M/mm3 (4.20-5.60); RED CELL DISTRIBUTION WIDTH 15.6 % (11.5-14.5); WHITE BLOOD COUNT 5.3 K/mm3 (4.8-10.8)
[2022-01-21 07:15] LABS: CALCIUM 8.9 mg/dL (8.3-10.5)
[2022-01-21 07:27] LABS: PROTHROMBIN TIME 35.7 SECONDS (9.0-12.0)
[2022-01-21 07:37] LABS: POTASSIUM 3.5 mmol/L (3.5-5.1)
[2022-01-21 09:20] VITALS: BP 116/67
[2022-01-21] MEDS ORDERED: LEVOFLOXACIN750 MG PO (12:40)
[2022-01-21 13:50] VITALS: BP 95/60
== END 2022-01-21 13:45 | DRG 871 ==
LOC: MED/SURG 18:56
PROVIDERS: ADMIT Family Medicine
DX: A41.9 Sepsis, unspecified organism (principal); J18.9 Pneumonia, unspecified organism; I48.20 Chronic atrial fibrillation, unspecified; I50.9 Heart failure, unspecified; N18.9 Chronic kidney disease, unspecified; G20 Parkinson's disease; R79.1 Abnormal coagulation profile; Z66 Do not resuscitate; Z79.01 Long term (current) use of anticoagulants; Z95.5 Presence of coronary angioplasty implant and graft
CPT/HCPCS: J2543; J7030

== ENCOUNTER → 2022-01-28 | Outpatient (CLI) | payer MEDICARE, BC ==
[~2022-01-28] MED LIST changes: +LEVOFLOXACIN750 MG PO
[2022-01-28 11:29] LABS: BASO # 0.03 K/mm3 (0.02-0.10); EOS # 0.06 K/mm3 (0.04-0.40); EOS % 0.9 % (0.0-4.0); HEMATOCRIT 29.1 % (42.0-52.0); HEMOGLOBIN 9.3 g/dL (13.5-18.0); LYMPH# 0.78 K/mm3 (1.50-4.00); MEAN CELL VOLUME 100 fl (78-100); MEAN CORPUSCULAR HEMOGLOBIN 32 pg (27-31); MEAN CORPUSCULAR HGB CONC 32 g/dL (33-37); MEAN PLATELET VOLUME 9.6 fl (7.4-10.4); MONO # 0.82 K/mm3 (0.20-0.80); NEU # 5.24 K/mm3 (1.40-6.50); PLATELET COUNT 142 K/mm3 (130-400); RED BLOOD COUNT 2.92 M/mm3 (4.20-5.60); RED CELL DISTRIBUTION WIDTH 16.3 % (11.5-14.5)
[2022-01-28 11:42] LABS: ALBUMIN 3.1 g/dL (3.4-4.8); POTASSIUM 3.5 mmol/L (3.5-5.1)
[2022-01-28 11:44] LABS: CALCIUM 9.3 mg/dL (8.3-10.5)
[2022-01-28 11:45] LABS: TOTAL PROTEIN 6.4 g/dL (6.2-8.1)
[2022-01-28 11:47] LABS: TOTAL BILIRUBIN 0.8 mg/dL (0.2-1.2)
[2022-01-28 12:22] LABS: PROTHROMBIN TIME 22.3 SECONDS (9.0-12.0)
== END ==
LOC: LAB 10:58
PROVIDERS: Family Medicine
DX: E03.4 Atrophy of thyroid (acquired) (principal); I11.0 Hypertensive heart disease with heart failure; I50.22 Chronic systolic (congestive) heart failure; I25.10 Atherosclerotic heart disease of native coronary artery without angina pectoris; E78.5 Hyperlipidemia, unspecified; E66.3 Overweight; I48.0 Paroxysmal atrial fibrillation; M10.00 Idiopathic gout, unspecified site; E11.9 Type 2 diabetes mellitus without complications; A41.9 Sepsis, unspecified organism

== ENCOUNTER → 2022-01-29 | Outpatient (CLI) | payer MEDICARE, BC ==
[2022-01-29 11:18] LABS: BASO # 0.03 K/mm3 (0.02-0.10); EOS # 0.13 K/mm3 (0.04-0.40); EOS % 2.3 % (0.0-4.0); HEMATOCRIT 30.6 % (42.0-52.0); LYMPH# 0.98 K/mm3 (1.50-4.00); MEAN CELL VOLUME 102 fl (78-100); MEAN CORPUSCULAR HEMOGLOBIN 33 pg (27-31); MEAN CORPUSCULAR HGB CONC 33 g/dL (33-37); MONO # 0.64 K/mm3 (0.20-0.80); NEU # 3.76 K/mm3 (1.40-6.50); PLATELET COUNT 112 K/mm3 (130-400); RED BLOOD COUNT 3.01 M/mm3 (4.20-5.60); RED CELL DISTRIBUTION WIDTH 15.9 % (11.5-14.5); WHITE BLOOD COUNT 5.6 K/mm3 (4.8-10.8)
[2022-01-29 11:19] LABS: ALBUMIN 3.2 g/dL (3.4-4.8); POTASSIUM 3.2 mmol/L (3.5-5.1)
[2022-01-29 11:20] LABS: CALCIUM 9.3 mg/dL (8.3-10.5)
[2022-01-29 11:21] LABS: TOTAL PROTEIN 6.7 g/dL (6.2-8.1)
[2022-01-29 11:23] LABS: TOTAL BILIRUBIN 0.8 mg/dL (0.2-1.2)
== END ==
LOC: LAB 10:37 → RAD 10:37
PROVIDERS: Family Medicine
DX: I50.21 Acute systolic (congestive) heart failure (principal); J69.0 Pneumonitis due to inhalation of food and vomit

== ENCOUNTER → 2022-02-21 | Outpatient (CLI) | payer MEDICARE, BC ==
[2022-02-21 09:54] LABS: BASO # 0.02 K/mm3 (0.02-0.10); EOS # 0.06 K/mm3 (0.04-0.40); EOS % 0.7 % (0.0-4.0); HEMATOCRIT 33.9 % (42.0-52.0); HEMOGLOBIN 10.7 g/dL (13.5-18.0); LYMPH# 0.81 K/mm3 (1.50-4.00); MEAN CELL VOLUME 99 fl (78-100); MEAN CORPUSCULAR HEMOGLOBIN 31 pg (27-31); MEAN CORPUSCULAR HGB CONC 32 g/dL (33-37); MEAN PLATELET VOLUME 9.3 fl (7.4-10.4); MONO # 0.67 K/mm3 (0.20-0.80); NEU # 6.65 K/mm3 (1.40-6.50); PLATELET COUNT 131 K/mm3 (130-400); RED BLOOD COUNT 3.43 M/mm3 (4.20-5.60); RED CELL DISTRIBUTION WIDTH 15.6 % (11.5-14.5); WHITE BLOOD COUNT 8.2 K/mm3 (4.8-10.8)
[2022-02-21 10:02] LABS: ALBUMIN 3.3 g/dL (3.4-4.8); POTASSIUM 4.1 mmol/L (3.5-5.1)
[2022-02-21 10:03] LABS: CALCIUM 9.7 mg/dL (8.3-10.5)
[2022-02-21 10:04] LABS: TOTAL PROTEIN 6.5 g/dL (6.2-8.1)
[2022-02-21 10:06] LABS: TOTAL BILIRUBIN 0.9 mg/dL (0.2-1.2)
== END ==
LOC: LAB 09:39
PROVIDERS: Internal Medicine
DX: D64.9 Anemia, unspecified (principal); R05.9 Cough, unspecified